=== PATIENT | male | born 1990 | race Caucasian/White ===

== ENCOUNTER 2018-04-27 23:45 | Inpatient (IN) | payer OTHER ==
[~2018-04-27] VITALS: Ht 188 cm; Wt 92.5 kg
[~2018-04-27 23:45] MED LIST: ALLEGRA ALLERG180 MG PO; NORCO 5-325 TA1 EACH PO
[2018-04-27 23:53] VITALS: BP 159/94
[2018-04-27] MEDS ORDERED: PLAVIX 75 MG TA75 M1 PO (23:57)
[2018-04-27] MEDS ORDERED: NEURONTIN 300300 M1 PO (23:57)
[2018-04-27] MEDS ORDERED: PERCOCET PO (23:57)
[2018-04-27] MEDS ORDERED: ASPIRIN EC325 MG PO (23:58)
[2018-04-28 01:43] LABS: HEMATOCRIT 45.8 % (42.0-52.0); HEMOGLOBIN 15.7 gm/dL (14.0-18.0); MCH 29.4 pg (26.0-34.0); MCHC 34.2 g/dL (28.0-37.0); MPV 8.4 fl. (7.2-11.1); NUCLEATED RBCS 0 /100WBC; PLATELET COUNT* 207 thou/uL (150-400); RBC 5.32 mil/uL (4.50-6.00); RDW-CV 13.6 % (10.5-14.5); WBC 8.4 thou/uL (4.0-11.0)
[2018-04-28 01:52] LABS: ANION GAP 7 mmol/L (7-16); BUN 12 mg/dL (7-18); CALCIUM 8.5 mg/dL (8.5-10.1); CHLORIDE 101 mmol/L (98-107); CO2 29 mmol/L (21-32); GLUCOSE 93 mg/dL (70-99); POTASSIUM 3.6 mmol/L (3.5-5.1); SODIUM 137 mmol/L (136-145)
[2018-04-28 02:00] LABS: TROPONIN-I LEVEL <0.06 ng/mL (<0.06)
[2018-04-28 02:20] LABS: ABSOLUTE EOSINOPHILS 0.3 thou/uL (0.0-0.7); ABSOLUTE LYMPHOCYTES 0.9 thou/uL (0.8-5.3); ABSOLUTE MONOCYTES 0.3 thou/uL (0.0-1.2); ABSOLUTE NEUTROPHILS 6.9 thou/uL (1.6-8.1); PLATELET ESTIMATE ADEQUATE
[2018-04-28 02:40] VITALS: BP 138/81
[2018-04-28 03:00] VITALS: BP 138/80
--- NOTE | 2018-04-28 05:19 | NUR ---
RECEIVED REPORT FROM JEWELRY MAKER, EHSAN, AT 0220. PT ARRIVED TO UNIT VIA CART AT 0240. PT'S FRIEND AT BEDSIDE. NURSING ASSESSMENT COMPLETED AT START OF SHIFT. PT VOCALIZED PAIN 10/10. DR. CHRISTENSEN NOTIFIED. NEW ORDER RECEIVED TO INCREASE FENTANYL DOSE. PT VOICED NO RELIEF FROM INCREASE IN DOSE. DR. CHRISTENSEN NOTIFIED AND NEW ORDERS RECEIVED. PT REFUSED INCREASE IN DOSE. DR. CHRISTENSEN NOTIFIED AND NEW ORDERS FOR DILAUDED RECEIVED. PT CONTINUED TO C/O PAIN WITHOUT RELIEF. DR. ROUSE (ORTHO) NOTIFIED, LISBET BANDAGE REMOVED AND REWRAPPED RIGHT ARM. PT CONTINUED TO C/O OF RIGHT FINGER NUMBNESS. DR. ROUSE NOTIFIED AND ONE TIME ORDER FOR DILAUDED RECEIVED. PT VOICED DECREASE OF PAIN FROM 10/10 TO 6/10. PT AWAITING FOR ORTHO CONSULT AT THIS TIME.
[2018-04-28 08:00] VITALS: BP 173/92
--- NOTE | 2018-04-28 09:13 | NUR ---
ASSUMED PT CARE AT 0730. PT ALERT, MOANING IN PAIN, STATES HIS PAIN IS IN RIGHT WRIST UP TO THE ELBOW. PLAN IS TO DO SURGERY TODAY, THE SURGEON SPOKE TO PT, INFORMED HIM OF THE PLAN. IV PAIN MEDS GIVEN PER MAR, PT STATEOS IT DOES NOT REALLY HELP. PT TAKEN BY BED AT APPROX 0900 TO SURGERY.
--- NOTE | 2018-04-28 12:36 | EKG ---
[place] [address] ELECTROCARDIOGRAM REPORT Name: LUZHAMLET Espinal Room: [address] ADM IN .R.#: [id number] Admission: 04/28/18 Attend Phys: Berhane Euceda, Discharge: Date of : [birth year] Report #: [id number] THIS REPORT FOR: //name// [facility] ED Test Date: 2018-04-28 Test Time: 02:32:17 Pat Name: HAMLET ESCOBAR Department: Room: [facility] Gender: M Seismograph Computer: LAURENCE : 1990 Requested By: Frank Olivier Order Number: [id number] MD: Ubaldo Montana Measurements Intervals [place] Rate: 86 P: 43 [place]: 136 QRS: 63 QRSD: 107 T: 55 QT: 352 QTc: 421 Interpretive Statements Sinus rhythm Atrial premature complex No previous ECG available for comparison Electronically Signed On 04-28-2018 12:36:05 CDT by Ubaldo Montana [email or web address] <ELECTRONICALLY SIGNED> By: Ubaldo Montana MD, [facility] 04/28/18 1236 0232 0232 Ubaldo Montana MD, FACC /EPI
[2018-04-28 13:45] VITALS: BP 124/61
--- NOTE | 2018-04-28 14:15 | NUR ---
PT ARRIVED TO ROOM 107 VIA BED AT 1345 POST OPEN INTERNAL FIXATION OF RIGHT DISTAL RADIUS-PT NOTED TO BE A&O X4, BUT DROWSY- VS 99.5 18 124/61 85 99% ON RA-CONTINET OF BOWEL AND BLADDER- ASSIST X1 WITH TRANSFERS FOR SAFETY- NON-WEIGHT BEARING TO RUE- RUE NOTED TO BE WRAPPED IN LISBET BANDAGE, ELEVATED ON PILLOW WITH ICE APPLIED- SENSATION INTACT, CAP REFIL < 3- IV NOTED TO LEFT HAND INTACT AND SL- PT NOTED TO BE DROWSY HAVING HARD TIME OPENING EYES, RATES PAIN TO RIGHT HAND /10- PRIOR ASSESSMENT REVIEWED AND THIS NURSE AGRESS- CALL LIGHT AND PERSONAL BELONGINGS WITH IN REACH- FAMILY AT SIDE AT THIS TIME- HOURLY ROUNDS IN PLACE R/T SAFETY/NEEDS- ALL NEEDS MET AT THIS TIME-WCTM
[2018-04-28 14:43] LABS: AMP/METHAMP Negative (Negative); BARBITURATES Negative (Negative); BENZODIAZEPINES POSITIVE (Negative); COCAINE Negative (Negative); METHADONE Negative (Negative); OPIATES POSITIVE (Negative); PCP Negative (Negative); THC Negative (Negative)
--- NOTE | 2018-04-28 18:21 | NUR ---
PT CURRENTLY RESTING IN BED, EYES CLOSED- FAIR PO INTAKE NOTED WITH DINNER- IV TO LEFT HAND INTACT, IVF INFUSSING PRESCIBED- PRN HYDROMORPHONE X2 THIS SHIFT FOR PAIN AT 1444, AND 1724- RIGHT ARM ELEVATED INDICATED- ICE PRN FOR COMFORT- CALL LIGHT AND PERSONAL BELONGINGS WITH IN REACH- ALL NEEDS MET AT THIS TIME-WCTM
[2018-04-28 19:45] VITALS: BP 148/75
[2018-04-29] VITALS: BP 147/82
[2018-04-29 04:31] LABS: ABSOLUTE MONOCYTES 0.7 thou/uL (0.0-1.2); ABSOLUTE NEUTROPHILS 6.1 thou/uL (1.6-8.1); BASOPHILS 0.4 %; EOSINOPHILS 0.4 %; HEMATOCRIT 43.1 % (42.0-52.0); HEMOGLOBIN 14.7 gm/dL (14.0-18.0); LYMPHOCYTES 12.8 %; MCH 29.4 pg (26.0-34.0); MCHC 34.2 g/dL (28.0-37.0); MCV 85.9 fL (80.0-100.0); MONOCYTES 9.4 %; MPV 8.6 fl. (7.2-11.1); NUCLEATED RBCS 0 /100WBC; PLATELET COUNT* 208 thou/uL (150-400); RBC 5.02 mil/uL (4.50-6.00); RDW-CV 13.6 % (10.5-14.5); WBC 7.9 thou/uL (4.0-11.0)
[2018-04-29 04:45] LABS: CREATININE 0.9 mg/dL (0.6-1.3); POTASSIUM 3.9 mmol/L (3.5-5.1)
[2018-04-29 05:00] VITALS: BP 135/72
--- NOTE | 2018-04-29 06:42 | NUR ---
PT CONTINUE TO REQUEST PAIN MEDICATION EVERY 2 HOURS , RIGHT WRIST ELEVATED ON PILLOWS DENIES NUMBNESS FINGER WARM TO TOUCH. 02 AT 2L PLACED ON AFTER MIDMNIGHT DUE TO SAT 87 -88 % ON RA AND PT DROWINESS. TAKING PO FLUIDS WELL AND VOIDING WITHOUT DIFF.WILL CONTINUE WITH CURRENT PLAN OF CARE.
[2018-04-29 08:16] VITALS: BP 141/90
[2018-04-29 09:03] VITALS: BP 141/90
--- NOTE | 2018-04-29 10:17 | NUR ---
PT DISCHARGED AT THIS TIME WITH PARENTS. VERBALIZED UNDERSTANDING OF DISCHARGE INSTRUCTIONS. IV REMOVED. NO FURTHER QUESTIONS OR CONCERNS AT THIS TIME.
--- NOTE | 2018-05-17 09:43 | OP ---
[address] [address] OPERATIVE REPORT Name: HAMLET ESCOBAR Room: [address]#: [id number] Admission: 04/28/18 Attend Phys: Berhane Euceda, Discharge: 04/29/18 Date of : [birth year] Report #: [id number] THIS REPORT FOR: //name// CC: Josiah Euceda DICTATED BY: Rigoberto Dominguez DO DATE OF SERVICE: 04/28/2018 PREOPERATIVE DIAGNOSES: 1. Right closed intra-articular distal radius fracture, greater than 3 parts. 2. Acute traumatic right carpal tunnel syndrome. PROCEDURES: 1. Open reduction and internal fixation, right distal radius fracture. 2. Right carpal tunnel release. 3. Physician-directed fluoroscopy greater than 1 hour. SURGEON: Charlie Almazan DO DINKEY DISPATCHER: Rigoberto Dominguez DO SECOND TOUCH UP PAINTER: Cam Montero DO ANESTHESIA: General and local. ESTIMATED BLOOD LOSS: 10 mL SPECIMENS REMOVED: None. COMPLICATIONS: None. CONDITION: Stable. DISPOSITION: Transferred to PACU. ANTIBIOTICS: 2 g Ancef IV preop. IMPLANTS: Pily distal radius plating system with plate and screws. 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 The dumpster started to tip over and he was forced to jump off landing directly on his outstretched right upper extremity. He immediately noted severe right wrist pain and obvious deformity. He presented to the Emergency Department where [place] [address] OPERATIVE REPORT Name: HAMLET ESCOBAR Room: [address] IN [facility]#: [id number] Admission: 04/28/18 Attend Phys: Berhane Euceda, Discharge: 04/29/18 Date of : [birth year] Report #: [id number] and demonstrated displaced comminuted distal radius fracture. At the time of our initial examination of the patient, he was noted to have numbness and tingling in the median nerve distribution. At that point, we discussed treatment options and recommended urgent open reduction and internal fixation of the fracture combined with open carpal tunnel release due to the acute carpal tunnel syndrome. Risks, benefits, complications and alternatives were described to the patient in detail. Risks included, but were not limited to bleeding, deep venous thrombosis, injury to nerves or blood vessels, need for further surgery, permanent nerve damage from the carpal tunnel syndrome as well as complication with anesthesia. The patient expressed understanding of the risks and wished to proceed. DESCRIPTION OF PROCEDURE: The patient was transferred to preoperative holding area to the operating suite. He was placed on the operating table in a supine position. He was given the benefit of general anesthesia. A well-padded pneumatic tourniquet was placed on the proximal right upper extremity. The pneumatic tourniquet was inflated during the case for a total of 69 minutes at 250 mmHg. After the well-padded pneumatic tourniquet was placed, the right upper extremity was prepped and draped in the usual sterile fashion. A timeout was then taken to confirm the appropriate patient identification, operative site, procedure to be performed, all were in agreement with the timeout. A standard FCR approach was used and a skin incision was made overlying the FCR tendon. Dissection was then carried down with Metzenbaum scissors to the level of the FCR tendon. The FCR sheath was then incised sharply with a scalpel blade and the FCR tendon was retracted ulnarly. Scalpel blade was used to continue the dissection through the floor of the FCR sheath to the level of the pronator quadratus. The pronator quadratus was then incised sharply off the distal radius and a martinez elevator was used to elevate the muscle belly off the bone. At this point, the fracture was revealed and noted to be severely comminuted and displaced. Manual traction and reduction maneuvers were used to perform open reduction of the fracture. C-arm fluoroscopy was then used to confirm appropriate reduction and anatomic alignment. Once the anatomic alignment was confirmed, a K-wire was then placed percutaneously from the dorsal aspect of the wrist through the styloid process from a distal to proximal direction. The K-wire was used to provisionally fixate and maintain our reduction. Fluoroscopy was again used to confirm that the reduction was maintained. At this point, the distal radius plate was placed on the bone and fixated provisionally with two more K wires. C-arm fluoroscopy was used and demonstrated adequate plate placement and maintained anatomic alignment of our reduction. Screws were then drilled and measured using AO technique. We started with the distal locking screws. Once the distal locking screws were in place with the exception of the styloid screw, we then directed our attention to the proximal screws. Three screws were placed proximally again using AO technique to measure appropriate [address] [address] OPERATIVE REPORT Name: METENOSKY,HAMLET S Room: [address] [facility].#: [id number] Admission: 04/28/18 Attend Phys: Berhane SoteloDarian Kinsey, Discharge: 04/29/18 Date of : 89 Report #: [id number] screw lengths. Final screw to be placed was the styloid screw. This was placed under visualization using the C-arm. Once all screws were in place, C-arm was used to confirm satisfactory placement and anatomic reduction of her fracture. The wound was then thoroughly irrigated. Attention was then addressed to the carpal tunnel. A standard carpal tunnel incision was made at the palm just ulnar to the palmar crease. The incision was carried down sharply to the level of the carpal tunnel. The transverse carpal ligament was then carefully incised using the scalpel blade until the median nerve was visualized. Once we were through the floor of the transverse carpal ligament, scissors were then used to incise the remainder of the ligament. This was done to the point where all fibers were released both proximal and distal. Once the carpal tunnel was released, both the incisions were again thoroughly irrigated with sterile saline. The FCR incision was then closed using 2-0 Vicryl in an interrupted fashion for the subcuticular layer. The final skin layer was closed using 3-0 nylon in an interrupted fashion. Carpal tunnel incision was closed also using 3-0 nylon in interrupted fashion. Hemostasis was noted at the end of the case. The patient tolerated the procedure well without any obvious complications. All counts were correct x 2 at the end of the procedure. He was transferred to PACU in stable condition. <ELECTRONICALLY SIGNED> By: Charlie Almazan, 05/17/18 0943 1133 [id number] Almazan DO /radha
== END 2018-04-29 10:19 | disposition home or self-care (01) | DRG 512 ==
LOC: M.ERS 23:45 → M.TBA-ER 04-28 01:38 → M.ORTHSURG 04-28 01:38 → M.2W 04-28 02:26 → M.ORTHSURG 04-28 14:35
PROVIDERS: Emergency Medicine Emergency Medical Services; Internal Medicine; ADMIT Family Medicine
PROC: 0PSH04Z Reposition Right Radius with Internal Fixation Device, Open Approach (ICD-10-PCS; principal; 2018-04-28)
PROC: 01N50ZZ Release Median Nerve, Open Approach (ICD-10-PCS; principal; 2018-04-28)
PROC: BW1J1ZZ Fluoroscopy of Upper Extremity using Low Osmolar Contrast (ICD-10-PCS; principal; 2018-04-28)
DX: S52.571A Other intraarticular fracture of lower end of right radius, initial encounter for closed fracture (principal); G56.01 Carpal tunnel syndrome, right upper limb; F17.210 Nicotine dependence, cigarettes, uncomplicated; W17.89XA Other fall from one level to another, initial encounter; Y93.89 Activity, other specified; Y92.89 Other specified places as the place of occurrence of the external cause; Y99.8 Other external cause status; Z79.82 Long term (current) use of aspirin; Z79.899 Other long term (current) drug therapy